=== PATIENT | female | born 1960 | race Two or more races ===

== ENCOUNTER 2020-05-20 07:00 | Day surgery (SDC) | payer OTHER | END 2020-05-20 14:05 | disposition home or self-care (01) | LOC: AMB-ENDOS 07:00 | PROVIDERS: ATTEND Surgery | DX: K63.5 Polyp of colon (principal); Z20.828 Contact with and (suspected) exposure to other viral communicable diseases; K64.8 Other hemorrhoids; Z12.11 Encounter for screening for malignant neoplasm of colon ==

== ENCOUNTER 2021-06-05 07:28 | Day surgery (SDC) | payer OTHER | END 2021-06-05 11:20 | disposition home or self-care (01) | LOC: AMB-ENDOS 07:28 | PROVIDERS: ATTEND Surgery | DX: K62.89 Other specified diseases of anus and rectum (principal); Z20.822 Contact with and (suspected) exposure to COVID-19; Z12.11 Encounter for screening for malignant neoplasm of colon ==